=== PATIENT | male | born 1965 | race Caucasian/White ===

== ENCOUNTER 2018-04-27 13:04 | Day surgery (SDC) | payer BC ==
[2018-04-25 11:15] VITALS: BMI 22.2
[~2018-04-27 13:04] MED LIST: LACTATED RINGERS 1,000 ML IV SCH
[2018-04-27 13:25] VITALS: TEMP 97.8
[2018-04-27] MEDS ORDERED: LIDOCAINE 1% 20 ML VIAL (10MG/ML) FOR IV START INTRADERMA ONE (13:34)
[2018-04-27] MEDS ORDERED: fentaNYL (PF) 50 MCG/ML 2 ML AMP ONE (13:42)
[2018-04-27] MEDS ORDERED: PROPOFOL 10 MG/ML 20 ML VIAL IV ONE (13:42)
[2018-04-27] MEDS ORDERED: MIDAZOLAM 2 MG/2 ML VIAL ONE (13:42)
--- NOTE | 2018-04-27 14:01 | P.PCN ---
Date of Procedure: 04/27/18 Procedure(s) Performed: Procedure: Total colonoscopy. Preoperative diagnosis: Screening for neoplasia. Postoperative diagnosis: Exam within normal limits. Preparation: HalfLytely prep. Sedation: Was provided by anesthesia. Brief clinical history: The patient is a 52-year-old male who is scheduled for this evaluation for screening for neoplasia because of history of polyps. His last exam was in October 2012. He has no abdominal complaints, bleeding or anemia. Procedure: With the patient on his left lateral decubitus position and after informed consent and adequate sedation, the perianal area was inspected and it did not show any fissures or fistulas. There were no masses felt on digital rectal examination. The Olympus CFQ 160L video colonoscope was then inserted in the rectum in the usual fashion and advanced to the cecum. The mucosa appeared healthy. No polyps or tumors were seen or any obvious diverticular disease or other pathology. I retroflexed the endoscope in the rectum before the endoscope was withdrawn. The patient tolerated the procedure well. Plan: The patient was reassured. He will follow up with you as planned and I recommended repeat exam in 5 years.
[2018-04-27 14:10] VITALS: RESP 18
[2018-04-27 14:31] VITALS: BP 124/82; PULSE 64
== END 2018-04-27 14:57 | disposition home or self-care (01) ==
LOC: ORWHC2ENDO 13:04
DX: Z12.11 Encounter for screening for malignant neoplasm of colon (principal); Z86.010 Personal history of colon polyps
CPT/HCPCS: J2250; J3010; J2704; G0105

== ENCOUNTER 2024-07-30 06:10 | Day surgery (SDC) | payer BC ==
[2024-07-23 14:19] VITALS: BMI 22.6
[~2024-07-30 06:10] MED LIST changes: -LACTATED RINGERS 1,000 ML IV SCH; +Pre Op ABX Message 1 EACH MISC MISCELLANE ONE
[2024-07-30] MEDS ORDERED: droPERidol 5 MG/2 ML VIAL IVP PRN (06:44)
[2024-07-30] MEDS ORDERED: HYDROmorphone 0.5 MG/0.5 ML SYRINGE IVP PRN (06:44)
[2024-07-30] MEDS ORDERED: LIDOCAINE 1% (10MG/ML) FOR IV START INTRADERMA PRN (06:44)
[2024-07-30 06:51] VITALS: TEMP 97.5
[2024-07-30] MEDS: LACTATED RINGERS 1,000 ML IV SCH (07:02)
[2024-07-30] MEDS: DEXAMETHASONE SOD PHOSPHATE 4 MG/ML 1 ML VIAL IV ONE (07:02)
[2024-07-30] MEDS: ONDANSETRON 4 MG/2 ML VIAL IVP ONE (07:03)
[2024-07-30] MEDS: ACETAMINOPHEN TAB 500 MG TAB PO PRN (07:03)
[2024-07-30] MEDS: HEPARIN SODIUM,PORCINE 5,000 UNIT/ML 1 ML VIAL SQ PRN (07:03)
[2024-07-30] MEDS: IV FLUID CONTINUATION 1,000 ML IV ONE (07:09)
[2024-07-30] MEDS ORDERED: PROPOFOL 10 MG/ML 20 ML VIAL IV ONE (07:26)
[2024-07-30] MEDS ORDERED: fentaNYL (PF) 50 MCG/ML 2 ML AMP ONE (07:26)
[2024-07-30] MEDS ORDERED: ceFAZolin 1 GM/50 ML BAG (PMX) ONE (07:26)
[2024-07-30] MEDS ORDERED: KETAMINE HCL IN 0.9 % NACL 50 MG/5 ML SYRINGE ONE (07:26)
[2024-07-30] MEDS ORDERED: MIDAZOLAM 2 MG/2 ML VIAL ONE (07:26)
--- NOTE | 2024-07-30 07:33 | P.GSHP ---
History of Present Illness H&P Date: 07/30/24 Chief Complaint: Right shoulder lipoma 59-year-old male here today for excision right shoulder lipoma. Enlarging in size over the last few years. Painful at times. Past Medical History Past Medical History: Hypertension History of Any Multi-Drug Resistant Organisms: None Reported Additional Past Surgical History / Comment(s): colonoscopy Additional Past Anesthesia/Blood Transfusion Reaction / Comment(s): never has had general anesthesia Past Psychological History: No Psychological Hx Reported Smoking Status: Never smoker Past Alcohol Use History: None Reported Past Drug Use History: None Reported - Past Family History Mother Family Medical History: No Reported History Father Family Medical History: Diabetes Mellitus Medications and Allergies Home Medications Medication Instructions Recorded Confirmed Type lisinopriL [Zestril] 5 mg PO DAILY 01/04/24 07/30/24 History Allergies Allergy/AdvReac Type Severity Reaction Status Date / Time No Known Allergies Allergy Verified 07/30/24 06:45 Surgical - Exam Vital Signs Temp Pulse Resp BP Pulse Ox 97.5 F L 62 18 156/89 99 07/30/24 06:44 07/30/24 06:44 07/30/24 06:44 07/30/24 06:44 07/30/24 06:44 Physical exam: General: Well-developed, well-nourished HEENT: Normocephalic, sclerae nonicteric Abdomen: Nontender, nondistended Extremities: No edema, right shoulderwith 6 x 4 cm lipomatous mass Neuro: Alert and oriented Assessment and Plan (1) Lipoma Narrative/Plan: 51-year-old male with shoulder lipoma will proceed with excision at this time. Current Visit: Yes Status: Acute Code(s): D17.9 - BENIGN LIPOMATOUS NEOPLASM, UNSPECIFIED SNOMED Code(s): 04385829
[2024-07-30] MEDS: BUPIVACAINE (PF) 0.25% 30 ML VIAL SQ ONE ×2 (07:52)
[2024-07-30] MEDS: LACTATED RINGERS 1,000 ML IV ONE (08:18)
[2024-07-30] MEDS ORDERED: NALOXONE 0.4 MG/ML 1 ML VIAL IV PRN (08:31)
[2024-07-30] MEDS ORDERED: HYDROcodone/APAP 5-325MG 1 EACH TAB PO PRN (08:31)
--- NOTE | 2024-07-30 08:35 | P.OP ---
Date of Procedure: 07/30/24 Procedure(s) Performed: PREOPERATIVE DIAGNOSIS: Right shoulder lipoma POSTOPERATIVE DIAGNOSIS: Right shoulder intramuscular lipoma PROCEDURE: Excision right shoulder lipoma with intermediate closure SURGEON: Scott EBL: 10 cc ANESTHESIA: Sedation and local COMPLICATIONS: None OPERATIVE PROCEDURE: Patient placed in the left cubitus position. Right upper shoulder prepped and draped sterilely. Area localized with Marcaine. Horizontal incision made overlying the palpable mass. The patient's subcutaneous tissues were divided using electrocautery. The fascia of the trapezius muscle was divided. The lipoma was present beneath the fascia intermixed with the muscle fibers. This was able to be carefully dissected away using blunt dissection and cautery. This measured 5 x 3 cm. The area was inspected. No bleeding was seen. The subcutaneous layers were closed using interrupted 3-0 Vicryl sutures. Length of intermediate closure 4.5 cm. Skin closed using a running 4-0 Monocryl stitch. Skin glue was then applied along with sterile dressings. DISPOSITION: Stable to recovery room
[2024-07-30 08:47] VITALS: RESP 16
[2024-07-30 09:15] VITALS: BP 119/76; PULSE 55
== END 2024-07-30 09:30 | disposition home or self-care (01) ==
LOC: OR 06:10
PROVIDERS: ATTEND Surgery
DX: D17.9 Benign lipomatous neoplasm, unspecified
CPT/HCPCS: 88304